=== PATIENT | female | born 1985 | race Caucasian/White ===

== ENCOUNTER 2018-05-28 16:14 | Emergency (ER) | payer BC ==
[2018-05-28 16:25] VITALS: BP 130/80
[2018-05-28] MEDS ORDERED: Ibuprofen TAB* 600 MG PO ONE (17:35)
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
== END 2018-05-28 18:34 | disposition home or self-care (01) ==
LOC: UCEAST 16:14
DX: S20.212A Contusion of left front wall of thorax, initial encounter (principal); W50.0XXA Accidental hit or strike by another person, initial encounter; R10.12 Left upper quadrant pain; Z97.5 Presence of (intrauterine) contraceptive device
CPT/HCPCS: 76705; A9270-GY

== ENCOUNTER 2019-01-28 22:16 | Emergency (ER) | payer BC ==
[2019-01-28] MEDS ORDERED: Bacitracin OINTMENT* 0.5% 0.5 oz TUBE TOPICAL ONE (23:17)
[2019-01-28] MEDS ORDERED: Mupirocin 2% OINT* TUBE TOPICAL ONE (23:17)
[2019-01-28] MEDS ORDERED: Tetan/Diph/Pertus SYR(Tdap)* 0.5 ML SYR(BOOSTRIX) use SYR contains LATEX IM ONE (23:17)
--- NOTE | 2019-01-28 23:18 | ED ---
Laceration/Wound HPI - HPI Summary HPI Summary: Patient is a 33 y/o F presenting to [facility] with complaints of dog bite to her left upper cheek that occurred tonight, 01/28/19 at around 2215. RN was present on scene and controlled laceration. Dog is UTD on vaccinations. Patient reports NKDA. Last tetanus was more than five years ago. On triage, pain is rated 5/10, nothing is noted to aggravate/alleviate Sx. Home medications and allergies are reviewed. - History of Current Complaint Stated Complaint: FACE LAC/DOG BITE PER PT Time Seen by Provider: 01/28/19 22:23 Hx Obtained From: Patient Onset/Duration: Lasting Minutes, Still Present Aggravating: Nothing Alleviating: Nothing Timing: Constant Current Severity: Moderate Pain Intensity: 5 Pain Scale Used: 0-10 Numeric Associated Signs & Symptoms: Negative - Allergy/Home Medications Allergies/Adverse Reactions: Allergies Allergy/AdvReac Type Severity Reaction Status Date / Time No Known Allergies Allergy Verified 05/28/18 16:25 PMH/Surg Hx/FS Hx/Imm Hx Endocrine/Hematology History: Denies: Hx Diabetes, Hx Thyroid Disease Cardiovascular History: Denies: Hx Hypertension Respiratory History: Denies: Hx Asthma, Hx Chronic Obstructive Pulmonary Disease (COPD) GI History: Denies: Hx Ulcer - Surgical History Surgery Procedure, Year, and Place: tonsils Infectious Disease History: No Infectious Disease History: Denies: Hx Hepatitis, Hx Human Immunodeficiency Virus (HIV), Traveled Outside the [place] in Last 30 Days - Family History Known Family History: Negative: Blood Disorder - Social History Alcohol Use: Weekly Substance Use Type: Reports: None Smoking Status (MU): Never Smoked Tobacco Review of Systems Negative: Fever - on vitals, temp is 98 F Skin: Other - positive - facial laceration, dog bite All Other Systems Reviewed And Are Negative: Yes Physical Exam - Summary Physical Exam Summary: General: Well-developed, Well-nourished female. No acute distress. HEENT: Normocephalic, Atraumatic. Eyes: Conjuctiva normal, PERRL. Ears: TMs within normal limits. Nares: (-) discharge, (-) erythema. Oropharynx: Clear, mucous membranes moist, (-) exudates. Neck: Soft, FROM, (-) lymphadenopathy, (-) thyromegaly, (-) JVD. Cardiovascular: Normal sinus rhythm, (-) murmur. Lungs: Clear to auscultation bilaterally (-) wheezes, (-) rales, (-) rhonchi. Abdomen: Soft, non-tender, non-distended, (-) organomegaly, normal bowel sounds. Back: (-) CVA tenderness Extremities: No edema. Skin: There is a 2.7 U-shaped laceration to the left upper cheek. Warm, dry, (- ) rash. Neuro: Alert and oriented x3, no focal deficits. Psychiatric: Mood normal, affect normal. Triage Information Reviewed: Yes Vital Signs On Initial Exam: Initial Vitals Temp Pulse Resp BP Pulse Ox 98.0 F 101 18 167/100 98 01/28/19 22:20 01/28/19 22:20 01/28/19 22:20 01/28/19 22:20 01/28/19 22:20 Vital Signs Reviewed: Yes Procedures - Procedure Summary Procedure Summary: 2.7 cm U-shaped laceration to left upper cheek was repaired. Lidocaine 2.0% without epi was used for anesthesia. Horizontal mattress suture was done. 3 adsorbable Vicryl sutures were used for inner layer and 6, 6-0 Nylon sutures were used for outer layer. No complications during procedure, laceration was closed. - Sedation Patient Received Moderate/Deep Sedation with Procedure: No - Laceration/Wound Repair 1 Location: face Description: Irregular - U-shaped Anesthesia: 2.0%, Lido Length, Depth and Shape: 2.7 cm U-shaped laceration Closure: Multilayer Suture Type: Prolene, Vicryl Number of Sutures: 9 - 3 inner layer, 6 outer layer Layer Closure?: Yes Sterile Dressing Applied?: Yes Diagnostics - Vital Signs Vital Signs Temp Pulse Resp BP Pulse Ox 01/28/19 22:20 98.0 F 101 18 167/100 98 - Laboratory Lab Statement: Any lab studies that have been ordered have been reviewed, and results considered in the medical decision making process. Laceration Repair Course/Dx - Course Course Of Treatment: 33 year old female wiht laceration to upper left cheek from dog bite. repaired as above. patient received Boostrix shot and Augmentin 875 mg PO. Bacitracin ointment was applied to laceration. stitches out in 7 days - Clinical Impression Provider Diagnoses: Dog bite, Facial laceration Discharge ED - Sign-Out/Discharge Documenting (check all that apply): Patient Departure - discharge - Discharge Plan Condition: Stable Disposition: HOME Prescriptions: Amoxicillin/Clavulanate TAB* [Augmentin TAB 875*] 875 mg PO BID 10 Days #20 tab Patient Education Materials: Animal Bite (ED), Care For Your Stitches (ED), Facial Laceration (ED), Stitches Removal (ED) Referrals: Catarina Martinez MD [Primary Care Provider] - 7 Days Additional Instructions: PLEASE RETURN TO ED FOR ANY NEW OR WORSENING SYMPTOMS. STITCHES OUT IN A WEEK. - Billing Disposition and Condition Condition: STABLE Disposition: Home - Attestation Statements Document Initiated by Vandana: Yes Documenting Scribe: GEOVANNA STONE Provider For Whom Vandana is Documenting (Include Credential): ANDREW LIVINGSTON MD Scribe Attestation: GEOVANNA Heaton, scribed for ANDREW LIVINGSTON MD on 01/29/19 at 0037. Scribe Documentation Reviewed: Yes Provider Attestation: The documentation as recorded by the GEOVANNA roche accurately reflects the service I personally performed and the decisions made by me, ANDREW LIVINGSTON MD Status of Scribe Document: Viewed
[2019-01-28] MEDS ORDERED: Amoxicillin/Clavulanate TAB* 875 MG PO ONE (23:21)
[2019-01-28 23:36] VITALS: BP 153/111
== END 2019-01-28 23:35 | disposition home or self-care (01) ==
LOC: ED 22:16
DX: S01.452A Open bite of left cheek and temporomandibular area, initial encounter (principal); Z23 Encounter for immunization; W54.0XXA Bitten by dog, initial encounter; Y92.9 Unspecified place or not applicable
CPT/HCPCS: 12051; 90471; 90715; 99282; A9270-GY